=== PATIENT | male | born 1990 | race Caucasian/White ===

== ENCOUNTER 2021-08-31 12:03 | Emergency (ER) | payer OTHER, SELFPAY ==
[2021-08-31 12:35] VITALS: BP 146/84; PULSE 67; RESP 18; TEMP 36.3; O2SAT 98; BMI 26.4
--- NOTE | 2021-08-31 13:16 | ED_ITS ---
HPI - Eye Problem General Chief complaint: Eye Problems Stated complaint: eye infection Time Seen by Provider: 08/31/21 13:16 Source: patient Limitations: no limitations History of Present Illness HPI Narrative: Patient was seen locally in urgent care recently for questions stnuris. Patient was given some eye ointment at bedtime. Patient has been flying as prescribed. Patient noticed some increase her redness and inflammation of the right lower lid. No vision changes no eye pain. No fever chills no similar symptoms in the past. Patient has no known allergies at this time. No other complaints at this time Related Data Previous Rx's Medication Instructions Recorded cephalexin 500 mg capsule 500 mg PO TID #21 cap 08/31/21 prednisone 20 mg tablet 20 mg PO DAILY 3 Days #3 tab 08/31/21 Allergies Allergy/AdvReac Type Severity Reaction Status Date / Time No Known Allergies Allergy Verified 08/31/21 12:37 Review of Systems Constitutional: Constitutional: Denies chills, Denies fever(s) and Denies headache(s) Eyes: Eyes: Denies blurry vision and Denies change in vision Comments: Right lower lid erythema and swelling ENT: Denies headache(s) Cardiovascular: Cardiovascular: Denies chest pain and Denies dyspnea Respiratory: Respiratory: Denies cough and Denies dyspnea Musculoskeletal: Musculoskeletal: Reports no additional musculoskeletal complaints Neurologic: Denies headache(s) [facility] Past Medical History Attestation statement: The following information was validated with the patient. Medical History No known health problems Social History Social History Advance Directives: No Advance Directives Information Provided: No Physical Exam Vital Signs: Vital Signs: Last Vital Signs Temp 97.3 F 08/31/21 12:35 Pulse 67 08/31/21 12:35 Resp 18 08/31/21 12:35 BP 146/84 H 08/31/21 12:35 Pulse Ox 98 08/31/21 12:35 BMI result Body Mass Index 26.4 vital signs have been reviewed as normal and appeared to be correct. Blood pressure normal. Heart rate normal. Respiration rate normal. Temperature normal. Oxygen saturation normal. Appearance: Alert. Oriented X3. No acute distress. Head: Normal external exam. Normocephalic. Atraumatic. No Puente signs noted. No raccoon eyes noted Eyes: PERRLA. EOMI. No sign of entrapment right lower eyelid is edematous and boggy nontender no purulent discharge red reflex present visual acuity intact ENT: Pharynx normal. Uvula midline. Moist mucous membranes. Neck: Soft full range of motio CVS: Heart regular rate and rhythm no murmurs and rubs Respiratory: Breath sounds are clear to auscultation bilaterally. No accessory muscle use noted. Back: Full range of motion noted. Skin: Right lower eyelid edematous erythematous boggy no other rashes noted Extremities: Moving all extremities ambulatory Neuro: Oriented X 3. No motor deficit. No sensory deficit. Reflexes normal. Course Course Course Narrative: Preorbital cellulitis Right lower eyelid stye Allergic reaction to current eyedrops Blepharitis Case discussed with Dr. Lambert likely allergic reaction to recent eyedrops will have patient stop put on low-dose steroids for 3 days and Keflex as a precaution Discharge Plan Discharge Clinical Impression: Acute allergic conjunctivitis of right eye Patient Disposition: Home, Self-Care Instructions: Conjunctivitis (ED) Additional Instructions: Symptoms are likely allergic response to the eyedrops your prescribed please stop at this time Will place on antibiotics for any lower lid skin infection at this time Cool compresses recommended Will start short course of prednisone to help with allergic response Return if any symptoms worsen Prescriptions: New prednisone 20 mg tablet 20 mg PO DAILY 3 Days Qty: 3 RF: 0 cephalexin 500 mg capsule 500 mg PO TID Qty: 21 RF: 0
== END 2021-08-31 13:41 | disposition home or self-care (01) ==
LOC: HO.ED 13:26
PROVIDERS: Emergency Provider Emergency Medicine; PCP Family Medicine
DX: H10.11 Acute atopic conjunctivitis, right eye (principal)
CPT/HCPCS: 99283

== ENCOUNTER 2021-10-15 07:43 | Emergency (ER) | payer OTHER, SELFPAY ==
[2021-10-15 07:49] VITALS: BP 149/85; PULSE 69; RESP 12; TEMP 36.6; O2SAT 99; BMI 25.8
--- NOTE | 2021-10-15 08:38 | PC.NURSE ---
hives improving after at home benadryl. awaiting MD/PA imer
--- NOTE | 2021-10-15 09:02 | ED_ITS ---
HPI - Allergic Reaction General Chief complaint: Allergic Reaction Stated complaint: Allergic reaction Time Seen by Provider: 10/15/21 09:00 Source: patient Limitations: no limitations History of Present Illness HPI narrative: This is a 31-year-old male who 3 days ago had developed a red pruritic area underneath his right axilla. That went away however the next day he developed generalized hives which were mild at 1st. They went away with Benadryl but then came back worse last night. Patient this morning noted some swelling in his lips. He denies any shortness of breath or wheezing, tongue swelling, throat tightness. He had a similar allergic reaction about 5 years ago, also in September. He is not on any blood pressure medicines or any other medicines. He is not on any antibiotics, did take some antibiotics over a month ago. Denies any unusual food exposure. He did eat salmon the night before the rash started but he has never had a bad reaction to salmon before. Related Data Previous Rx's Medication Instructions Recorded cephalexin 500 mg capsule 500 mg PO TID #21 cap 08/31/21 prednisone 20 mg tablet 20 mg PO DAILY 3 Days #3 tab 08/31/21 diphenhydramine HCl 25 mg tablet 50 mg PO Q6H PRN #30 tab 10/15/21 (Benadryl Allergy) famotidine 20 mg tablet (Pepcid) 20 mg PO BID #10 tab 10/15/21 prednisone 20 mg tablet 40 mg PO DAILY #10 tab 10/15/21 Allergies Allergy/AdvReac Type Severity Reaction Status Date / Time No Known Allergies Allergy Verified 08/31/21 12:37 Review of Systems Constitutional: Constitutional: Reports no additional constitutional complaints Eyes: Eyes: Reports no additional eye complaints ENT: Denies dysphagia and Denies sore throat Comments: Lip swelling Cardiovascular: Cardiovascular: Reports no additional cardiovascular complaints Respiratory: Respiratory: Reports no additional respiratory complaints Gastrointestinal: Gastrointestinal: Reports no additional gastrointestinal complaints and Denies dysphagia Integumentary/Breasts: Skin/Breast: Reports rash Neurologic: Denies Sensory deficit (Neuro) [facility] Past Medical History Medical History No known health problems Social History Social History Advance Directives: No Advance Directives Information Provided: No Physical Exam Vital Signs: Vital Signs: Last Vital Signs Temp 97.8 F 10/15/21 07:49 Pulse 69 10/15/21 07:49 Resp 12 10/15/21 07:49 BP 149/85 H 10/15/21 07:49 Pulse Ox 99 10/15/21 07:49 BMI result Body Mass Index 25.8 Const: General: cooperative, no acute distress and alert Orientation/consciousness: patient oriented x3 HENMT: Other: Mild upper and lower lip swelling. Tongue normal. Uvula normal. Phonation normal Head: Yes normal to inspection Throat: Yes posterior oropharynx normal, Yes tonsils normal and Yes uvula midline Eyes: General: appearance normal, both eyes and all related structures Eyelids: Yes eyelids normal Conjunctivae: conjunctivae normal Pupils: Equal, round and reactive pupils present Neck: Neck: Yes normal visual inspection and Yes supple Chest: Chest palpation & inspection: normal inspection of the chest Resp: Effort & Inspection: normal respiratory effort Auscultation: clear to auscultation bilaterally Cardio: Rate: regular rate Rhythm: regular rhythm Heart sounds: S1 normal heart sound present, S2 normal heart sound present, no gallops, no murmurs and no rubs GI: Palpation (GI): Soft to palpation, nontender and Other GI palpation findings present (Non-distended) Auscultation: normal bowel sounds Skin: Other: Diffuse urticarial rash on extremities, trunk, most confluent area right upper arm. Upper back relatively spared, more prominent and lower back General skin exam: no rashes or lesions noted Neuro: General: patient oriented x3, no focal motor deficits and CN's II-XI intact bilaterally Cranial nerves: Yes Equal, round and reactive pupils present Cognition (Neuro): normal cognition Motor exam (neuro): 5/5 motor strength present throughout Sensory Exam: No Sensory deficit (Neuro) Extrem: General: Yes normal to inspection and Yes no pedal edema Psych: Appearance: grossly normal Affect: normal affect MDM - Allergic Reaction MDM Narrative Medical decision making narrative: Patient with urticaria, mild lip swelling, no other ENT symptoms or dyspnea. Patient has been medicating himself with diphenhydramine. Patient is not on any Yeison inhibitors or other blood pressure medicine, no new medicines or recent antibiotics. Patient was given prednisone 60 mg p.o., diphenhydramine 50 mg p.o., Pepcid 20 mg p.o.. Patient had no progression in his symptoms. Will treat with the same medicines at home for 5 days. Likely with the patient may be reacting to same and he had the night before is a possibility, though has never reacted to before. Rash started underneath the right axilla. Patient denied any new deodorant, says he uses natural deodorant and has not changed it. Discharge Plan Discharge Clinical Impression: Urticaria, Angioedema Patient Disposition: Home, Self-Care Instructions: Urticaria (ED), Angioedema (ED) Additional Instructions: Use the prednisone, diphenhydramine, and Pepcid as prescribed. Return for any new or worse symptoms such as throat tightening, tongue swelling, worse lip swelling, shortness of breath. Consider following up with an semiconductor equipment technician for skin testing to determine what you might be reacting to. Avoid salmon and other fish and seafood for the time being, though this is not likely to have been the trigger for your reaction. Prescriptions: New diphenhydramine HCl [Benadryl Allergy] 25 mg tablet 50 mg PO Q6H PRN (Reason: allergic reaction) Qty: 30 RF: 0 famotidine [Pepcid] 20 mg tablet 20 mg PO BID Qty: 10 RF: 0 prednisone 20 mg tablet 40 mg PO DAILY Qty: 10 RF: 0 No Action prednisone 20 mg tablet 20 mg PO DAILY 3 Days Qty: 3 RF: 0 cephalexin 500 mg capsule 500 mg PO TID Qty: 21 RF: 0 Interventions: ED Discharge Assessment Last Done: 10/15/21 09:41 Discharge Date/Time: 10/15/21 09:42
[2021-10-15] MEDS: predniSONE 20 MG TABLET 60 MG PO (09:11)
[2021-10-15] MEDS: diphenhydrAMINE HCL 25 MG TABLET 50 MG PO (09:12)
[2021-10-15] MEDS: Famotidine 20 MG TABLET PO (09:12)
== END 2021-10-15 09:42 | disposition home or self-care (01) ==
PROVIDERS: Emergency Provider Emergency Medicine; PCP Family Medicine
DX: L50.0 Allergic urticaria (principal)
CPT/HCPCS: 99283; Q0163

== ENCOUNTER 2022-01-11 17:19 | Emergency (ER) | payer OTHER, SELFPAY ==
[2022-01-11 17:26] VITALS: BP 155/91; PULSE 74; RESP 16; TEMP 36.3; O2SAT 97; BMI 25.1
[2022-01-11 17:43] LABS: Appearance Urine HAZY; Color Urine YELLOW; Glucose Urine UA NEG (NEG); Leukocyte Esterase Urine NEG (NEG); Nitrite Urine NEG (NEG); PH 5.5 (5.0-8.0); Urine Blood NEG (NEG); Urine Ketones NEG (NEG); Urine Protein NEG (NEG-TRACE)
[2022-01-11 17:50] LABS: WBC Urine 0 /HPF (0-4)
[2022-01-11 17:51] LABS: RBC Urine 0 /HPF (0); Squamous Epithelial Cell Urine TRACE /LPF
--- NOTE | 2022-01-11 18:49 | ED_ITS ---
HPI - Male Genitourinary General Chief complaint: Urogenital-Male Stated complaint: Uti/std screening Time Seen by Provider: 01/11/22 18:26 Source: patient Mode of arrival: ambulatory Limitations: no limitations History of Present Illness HPI Narrative: patient presents to emergency department requesting screening for sexually transmitted infection, as he had a new sexual partner 1 week ago. He reports for the past 2 days he has been noticing some discomfort to his urethra initially that occurred after urinating, but now seems to be more persistent. Denies any redness, rashes, lesions, penile discharge, swelling of the scrotum. Denies fevers, chills, nausea, vomiting, flank pain, back pain, abdominal pain. Related Data Previous Rx's Medication Instructions Recorded cephalexin 500 mg capsule 500 mg PO TID #21 cap 08/31/21 prednisone 20 mg tablet 20 mg PO DAILY 3 Days #3 tab 08/31/21 diphenhydramine HCl 25 mg tablet 50 mg PO Q6H PRN #30 tab 10/15/21 (Benadryl Allergy) famotidine 20 mg tablet (Pepcid) 20 mg PO BID #10 tab 10/15/21 prednisone 20 mg tablet 40 mg PO DAILY #10 tab 10/15/21 doxycycline hyclate 100 mg capsule 100 mg PO BID 7 Days #14 cap 01/11/22 Allergies Allergy/AdvReac Type Severity Reaction Status Date / Time No Known Allergies Allergy Verified 08/31/21 12:37 Review of Systems Review of Systems: Genitourinary: dysuria Yes all other systems are reviewed and are negative PMFSH Past Medical History Attestation statement: The following information was validated with the patient. Source: old records reviewed Medical History No known health problems Social History Social History Advance Directives: No Advance Directives Information Provided: No Physical Exam Vital Signs: Vital Signs: Last Vital Signs Temp 97.4 F 01/11/22 17:26 Pulse 74 01/11/22 17:26 Resp 16 01/11/22 17:26 BP 155/91 H 01/11/22 17:26 Pulse Ox 97 01/11/22 17:26 BMI result Body Mass Index 25.1 Vital signs have been reviewed as normal and appeared to be correct. Blood pressure normal.? Heart rate normal.? Respiration rate normal. Temperature normal.? Oxygen saturation normal. Appearance: Alert.?Oriented to person, place and time. No acute distress.?Normal affect. Eyes: Pupils equal, round and reactive to light.? ENT: Pharynx normal.?? Neck: Normal inspection.? Neck supple.?? CVS: Heart sounds normal. Normal heart rate and rhythm.? Pulses normal.?? Respiratory: No respiratory distress.? Lung sounds clear to auscultation bilaterally?? Abdomen: Soft and non-tender. genitourinary: With Building Construction Inspector; Sg, no swelling, erythema, lesions, active discharge. Skin: Skin warm and dry.? Normal skin color.? ?? Neuro: Moves all extremities spontaneously. Sensation intact bilaterally. No focal neuro deficits. Ambulates with normal steady gait. Course Course Course Narrative: Patient is a 31-year-old male with no significant past medical history requesting screening for chlamydia and gonorrhea given recent news sexual partner, urine specimen obtained for this. Genitourinary exam without acute concerns, no concerning vesicles or lesions to suggest HSV. Advised will treat prophylactically with ceftriaxone and doxycycline, patient to follow-up with primary care provider [facility] for additional outpatient testing. Urinalysis free from sign of infection, not consistent with pyelonephritis, testicular torsion discussed plan of care for discharge home, outpatient follow-up with primary care provider, advised reasons return back to emergency department, patient is agreeable to plan of care. [facility] - Male Genitourinary Lab Data Labs: Lab Results 01/11/22 Range/Units 17:36 Urine Color YELLOW Urine Appearance HAZY Urine pH 5.5 (5.0-8.0) Ur Specific [place] 1.010 (1.005-1.025) Urine Protein NEG (NEG-TRACE) MG/DL Urine Glucose (UA) NEG (NEG) MG/DL Urine Ketones NEG (NEG) MG/DL Urine Blood NEG (NEG) Urine Nitrite NEG (NEG) Ur Leukocyte Esterase NEG (NEG) Urine RBC 0 (0) /HPF Urine WBC 0 (0-4) /HPF Ur Squamous Epith Cells TRACE /LPF Urine Bacteria NONE /LPF Discharge Plan Discharge Clinical Impression: STI (sexually transmitted infection) Patient Disposition: Home, Self-Care Instructions: Male Condom Use (ED) Additional Instructions: Take entire course of antibiotics as prescribed. As we discussed, please follow-up with your primary care doctor as needed, and return to the emergency department any new worsening symptoms or concerns. Prescriptions: New doxycycline hyclate 100 mg capsule 100 mg PO BID 7 Days Qty: 14 0RF No Action prednisone 20 mg tablet 20 mg PO DAILY 3 Days Qty: 3 0RF cephalexin 500 mg capsule 500 mg PO TID Qty: 21 0RF diphenhydramine HCl [Benadryl Allergy] 25 mg tablet 50 mg PO Q6H PRN (Reason: allergic reaction) Qty: 30 0RF famotidine [Pepcid] 20 mg tablet 20 mg PO BID Qty: 10 0RF prednisone 20 mg tablet 40 mg PO DAILY Qty: 10 0RF Interventions: ED Discharge Assessment Last Done: 01/11/22 19:04 Discharge Date/Time: 01/11/22 19:06
[2022-01-11] MEDS: Lidocaine HCl 1 % MPF 5 ML VIAL SUBCUT (19:01)
[2022-01-11] MEDS: cefTRIAXone sodium 500 MG VIAL IM (19:02)
[2022-01-12 02:03] LABS: CT PCR NOT DETECTED (Not Detect.); NG PCR NOT DETECTED (Not Detect.)
== END 2022-01-11 19:06 | disposition home or self-care (01) ==
PROVIDERS: Student in an Organized Health Care Education/Training Program; Emergency Provider Internal Medicine; PCP Pediatrics
DX: A64 Unspecified sexually transmitted disease (principal); Z79.899 Other long term (current) drug therapy
CPT/HCPCS: 81001; 87491; 87591; 96372; 99283; 99284; J0696

== ENCOUNTER 2022-03-06 10:14 | Emergency (ER) | payer OTHER, SELFPAY ==
[2022-03-06 10:46] VITALS: BP 141/65; PULSE 67; RESP 18; TEMP 36.8; O2SAT 99; BMI 25.0
--- NOTE | 2022-03-06 11:47 | ED_ITS ---
HPI - Eye Problem General Chief complaint: Eye Problems Stated complaint: swollen eye causing eye pain Time Seen by Provider: 03/06/22 11:16 Source: patient Mode of arrival: ambulatory Limitations: no limitations History of Present Illness MD chief complaint: other ( right lower eyelid swelling/thighs) Onset (ago): month(s) ( last few months worse today) Onset description: gradual Duration: constant and progressively worsening Location: right eye Eye Symptoms: redness, pain and discharge Place: home Mechanism: none Severity: moderate If Pain, Quality: aching Associated symptoms: none Treatments Prior to Arrival: none Related Data Patient tetanus UTD: Yes Previous Rx's Medication Instructions Recorded cephalexin 500 mg capsule 500 mg PO TID #21 caps 08/31/21 prednisone 20 mg tablet 20 mg PO DAILY 3 days #3 tabs 08/31/21 diphenhydramine HCl 25 mg tablet 50 mg PO Q6H PRN allergic reaction 10/15/21 (Benadryl Allergy) #30 tabs famotidine 20 mg tablet (Pepcid) 20 mg PO BID #10 tabs 10/15/21 prednisone 20 mg tablet 40 mg PO DAILY #10 tabs 10/15/21 doxycycline hyclate 100 mg capsule 100 mg PO BID 7 days #14 caps 01/11/22 cephalexin 500 mg capsule 500 mg PO Q6H 10 days #40 caps 03/06/22 erythromycin 5 mg/gram (0.5 %) eye 0.5 inch ophthalmic (eye) QID 03/06/22 ointment Stye 7 days #3.5 grams Allergies Allergy/AdvReac Type Severity Reaction Status Date / Time No Known Allergies Allergy Verified 08/31/21 12:37 Review of Systems Review of Systems: Constitutional : No fevers, no chills, No changes in activity, No lethargy, No recent prior head injury, No agitation, No increased fussiness ENT/Mouth : No Ear Pain, No Nasal discharge/drainage Eyes: + right lower eyelid swelling/thigh, No Vision changes/blurry/decreased vision, No Eye Pain, No Swelling, No Foreign Body, No Photophobia, no itching, no contact lens uses, no recent welding, no bleeding Cardiovascular : No Chest Pain, No SOB Respiratory : No Cough Gastrointestinal : No Nausea, No Vomiting, No abdominal Pain Genitourinary : No Dysuria, No Urinary Frequency, No Urinary Incontinence, No Urgency, No Flank Pain Musculoskeletal : No joint pain, No neck stiffness, No back pain/injury Skin : No lacerations Neuro : No unsteady gait, No Paresthesias, No Loss of Consciousness, No altered mental status, No dizziness, No Headache Denies past medical history of HIV, recent trauma, coagulopathy, recent spinal/ epidural procedure, new medication, URI symptoms, close contacts with similar symptoms, tick bite, or known CO2 exposure. Yes all other systems are reviewed and are negative [facility] Past Medical History Attestation statement: The following information was validated with the patient. Source: old records reviewed and nursing notes reviewed Medical History No known health problems Social History Social History Advance Directives: No Advance Directives Information Provided: No Physical Exam Vital Signs: Vital Signs: Last Vital Signs Temp 98.2 F 03/06/22 10:46 Pulse 67 03/06/22 10:46 Resp 18 03/06/22 10:46 BP 141/65 H 03/06/22 10:46 Pulse Ox 99 03/06/22 10:46 O2 Del Method 03/06/22 10:46 BMI result Body Mass Index 25.0 vital signs have been reviewed as normal and appeared to be correct. Blood pressure 141/65. Heart rate normal. Respiration rate normal. Temperature norm al. Oxygen saturation normal. Appearance: Alert. Oriented X3. No acute distress. Head: Normal external exam. Normocephalic. Atraumatic. No Puente signs noted. No raccoon eyes noted Eyes: PERRLA. EOMI. Conjunctiva are normal. Cornea are normal. Funduscopic exam within normal limits. Sclera normal. Eyelids normal. left eyelids within normal limits. right lower eyelid with a stye in place with mild purulent drainage and soft tissue swelling consistent with periorbital cellulitis. Not consistent with orbital cellulitis. No papilledema noted. Anterior chamber normal. No photophobia noted. ENT: EAC normal. TM's Normal. Pharynx normal. Uvula midline. Moist mucous membranes. Neck: Normal inspection. Neck supple. FROM. No adenopathy. Thyroid Normal. No meningeal signs. No neck mass noted. CVS: Normal heart rate and rhythm. Heart sound normal. No murmurs noted. Pulses normal throughout. Respiratory: No respiratory distress. Painless inspiration. Breath sounds normal. Back: Full range of motion noted. Skin: Skin warm and dry. Normal skin color. Normal skin turgor. No rashes/lesions/lacerations noted. Extremities: No lower extremity edema. Extremities exhibit normal range of motion. Extremities nontender. Neuro: Oriented X 3. No motor deficit. No sensory deficit. Reflexes normal. Course Course Course Narrative: Patient now status post I&D of abscess with manual pressure. Patient tolerated procedure well. Will DC home with topical antibiotic and oral antibiotic and instructions to follow-up with Dr. Hernández the economic development coordinator and to return if any new or worsening symptoms. Patient understands agrees with this plan. MDM - Eye Problem Medical Records Attestation: I reviewed the patient's medical records. Discharge Plan Discharge Clinical Impression: External hordeolum, Periorbital cellulitis Patient Disposition: Home, Self-Care Instructions: Stye (ED), Periorbital Cellulitis in Adults (ED) Prescriptions: New erythromycin 5 mg/gram (0.5 %) ointment 0.5 inch ophthalmic (eye) QID 7 Days Qty: 3.5 0RF cephalexin 500 mg capsule 500 mg PO Q6H 10 Days Qty: 40 0RF No Action prednisone 20 mg tablet 20 mg PO DAILY 3 Days Qty: 3 0RF cephalexin 500 mg capsule 500 mg PO TID Qty: 21 0RF diphenhydramine HCl [Benadryl Allergy] 25 mg tablet 50 mg PO Q6H PRN (Reason: allergic reaction) Qty: 30 0RF famotidine [Pepcid] 20 mg tablet 20 mg PO BID Qty: 10 0RF prednisone 20 mg tablet 40 mg PO DAILY Qty: 10 0RF doxycycline hyclate 100 mg capsule 100 mg PO BID 7 Days Qty: 14 0RF Referrals: Eros Hernández [Physician] - 1 week Jose Saba MD [Primary Care Provider] - 2 days Stand Alone Forms: Work/School Release
[2022-03-06] MEDS: Erythromycin Base 0.5% Oph Oin 1 GM TUBE 1 CM EYE-RIGHT (11:58)
[2022-03-06] MEDS: cephALEXin 500 MG CAPSULE PO (11:58)
== END 2022-03-06 12:05 | disposition home or self-care (01) ==
PROVIDERS: Emergency Provider Emergency Medicine; PCP Pediatrics
DX: H00.012 Hordeolum externum right lower eyelid (principal); L03.213 Periorbital cellulitis; H57.11 Ocular pain, right eye
CPT/HCPCS: 99282; 99283